=== PATIENT | female | born 2005 | race Caucasian/White ===

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

== ENCOUNTER 2025-04-02 13:47 | Outpatient (CLI) | payer OTHER, SELFPAY ==
--- NOTE | ~2025-04-02 | US_ITS ---
EXAMINATION: US pelvic complete INDICATION: Irregular menses TECHNIQUE: Multiple transabdominal sonographic images of the pelvis were obtained. COMPARISON: None. FINDINGS: Uterus: The uterus appears normal in size, shape, and position. The endometrium appears normal, with a thickness of 10 mm. Right Ovary: The right ovary appears normal. Vascular flow is present. Left Ovary: The left ovary appears normal.. Vascular flow is present. There is no free fluid in the pelvis. IMPRESSION: Normal pelvic ultrasound. Reviewed, dictated and finalized at location A. IMPRESSION: Normal pelvic ultrasound.
== END 2025-04-02 13:48 | disposition home or self-care (01) ==
LOC: MICIMG 13:49
PROVIDERS: PCP Family Medicine; Visit Provider Nurse Practitioner
DX: N92.6 Irregular menstruation, unspecified (principal)
CPT/HCPCS: 76856

== ENCOUNTER 2025-04-30 11:51 | Emergency (ER) | payer OTHER, SELFPAY ==
[2025-04-30 12:00] VITALS: BP 107/60; PULSE 59; RESP 18; TEMP 36.2; O2SAT 100
--- NOTE | 2025-04-30 12:11 | ED.FEMALEGU ---
HPI - Female Genitourinary General Chief complaint: Urogenital-Female Stated complaint: UTI Source: patient Mode of arrival: ambulatory Limitations: no limitations History of Present Illness HPI Narrative: This is a 20 y/o female that presents to the urgent care with reports of dsyuria, frequency and dark colored urine that began yesterday. Patient has had UTI's before, she has started AZO urinary OTC. she denies any back pain, fever, or other symptoms. MD elicited complaint: dysuria and UTI Onset (ago): day(s) (2) Severity: mild Severity scale (1-10): 2 Quality of pain: burning Consistency: intermittent Vaginal discharge: none Vaginal bleeding: none Urinary symptoms: Dysuria, Frequency and Foul Smelling Urine Exacerbating factors: none Relieving factors: none Associated symptoms: denies other symptoms Treatment prior to arrival: OTC urinary analgesics Sexual activity: Yes Patient : No Date of Last Menstrual Period: 04/16/25 Related Data Home Medications ?Medication ?Instructions ?Recorded ?Confirmed ?Last Taken ?Type drospirenone 3 mg-ethinyl 1 tablet PO DAILY 09/09/23 04/30/25 Unknown History estradiol 0.03 mg tablet (Alize (28)) Allergies Allergy/AdvReac Type Severity Reaction Status Date / Time No Known Allergies Allergy Verified 04/30/25 11:54 Review of Systems Review of Systems: All systems reviewed & are unremarkable except as noted in HPI and below PMFSH Past Medical History Medical History Anxiety Arthritis Osteochondroma Surgical, left shoulder Psoriasis Surgical History Surgical History [place] teeth removed Family History Family History Grandparent Cerebrovascular accident Social History Social History Smoking status: Former smoker (quit Jan 2023) Second hand tobacco smoke exposure: No Alcohol intake: never Substance use: never Substance use type: does not use Lack of Transportation: No Lack of Food: Never True Current Housing: I Have Housing Concerned About Future Housing: No Difficulty Paying Gas/Electric Bills: No Difficulty Paying for Meds: No Currently Unemployed: No Education: High School Diploma/GED Occupation/Education: occupation 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 Gender identity (if verbalized by the patient): Female Sexual Orientation (if Verbalized by the Patient): Straight or Heterosexual Spiritual care concerns: No Agree to blood products: No Exam Const: General: healthy appearing Nutritional Appearance: well nourished Orientation/consciousness: patient oriented x3 Limitations: no limitations HENMT: Head: normal to inspection Ears: external ears normal Face/Nose/Sinus: Normal external nose present Face and sinus: normal facial exam Mouth: Yes Normal oral and palatal mucosa present Teeth and gingiva: dentition normal Eyes: Conjunctivae: conjunctivae normal Pupils: Equal, round and reactive pupils present Neck: Neck: normal visual inspection Chest: Chest palpation & inspection: normal inspection of the chest Resp: Effort & Inspection: normal respiratory effort Auscultation: clear to auscultation bilaterally Cardio: Rate: regular rate Rhythm: regular rhythm GI: GI Palp: Yes Soft to palpation Auscultation: normal bowel sounds : General: Yes Bladder palpation abnormal tender and Yes no CVA tenderness Back/Spine/Pelvis: Back: no CVA tenderness Skin: General skin exam: normal color Rashes: no rashes Wounds: no wounds Neuro: General: patient oriented x3 Cranial nerves: Yes Nystagmus not present Speech: normal speech Gait exam (Neuro): Normal gait present Extrem: General: normal to inspection Psych: Appearance: grossly normal Mental Status: mental status grossly normal Affect: normal affect Attitude: cooperative Course Course Emergency Course: This is a 20 y/o female that presents to the urgent care with reports of dsyuria, frequency and dark colored urine that began yesterday. Patient has had UTI's before, she has started AZO urinary OTC. she denies any back pain, fever, or other symptoms. educated patient on urinalysis results. educated on use of AZO. will treat urinalysis with antibiotics. increase your fluids, avoid alcohol or carbonated beverages. Continue with azo urinary as prior. Take antibiotics until completed. Avoid baths, hot tubs, or swimming at this time. Ensure to avoid after sexual intercourse. Follow with primary care provider in the next 2-3 days for further evaluation and exam. Return to the emergency department or urgent care with any worrisome sign or symptom. Answered questions to her satisfaction she is agreeable to plan. patient denies any further needs or concerns to be addressed prior to discharge Level of Care: Express Care Visit Vital Signs Vital signs: Vital Signs Temperature 97.1 F L 04/30/25 12:00 Pulse Rate 59 L 04/30/25 12:00 Respiratory Rate 18 04/30/25 12:00 Blood Pressure 107/60 04/30/25 12:00 Pulse Oximetry 100 04/30/25 12:00 Oxygen Delivery Room Air 04/30/25 12:00 Temperature 97.1 F L 04/30/25 12:00 Pulse Rate 59 L 04/30/25 12:00 Respiratory Rate 18 04/30/25 12:00 Blood Pressure 107/60 04/30/25 12:00 Pulse Oximetry 100 04/30/25 12:00 Oxygen Delivery Room Air 04/30/25 12:00 MDM - Female Genitourinary MDM Narrative Medical decision making narrative: increase your fluids, avoid alcohol or carbonated beverages. Continue with azo urinary as prior. Take antibiotics until completed. Avoid baths, hot tubs, or swimming at this time. Ensure to avoid after sexual intercourse. Follow with primary care provider in the next 2-3 days for further evaluation and exam. Return to the emergency department or urgent care with any worrisome sign or symptom. Differential Diagnosis Differential diagnosis: Likely urinary tract infection and cystitis Medical Records Attestation: I reviewed the patient's medical records. Lab Data Attestation: I reviewed the patient's lab results. Labs: Lab Results 04/30/25 Range/Units 12:11 POC Urine HCG, Qual Negative (Negative) Discharge Plan Discharge Clinical Impression: Urinary tract infection Qualifiers: Urinary tract infection type: site unspecified Hematuria presence: without hematuria Qualified Code(s): N39.0 - Urinary tract infection, site not specified Patient Disposition: Home Condition: Stable Instructions: Antibiotic Form, Urinary Tract Infection in Women (DC) Additional Instructions: increase your fluids, avoid alcohol or carbonated beverages. Continue with azo urinary as prior. Take antibiotics until completed. Avoid baths, hot tubs, or swimming at this time. Ensure to avoid after sexual intercourse. Follow with primary care provider in the next 2-3 days for further evaluation and exam. Return to the emergency department or urgent care with any worrisome sign or symptom. Patient Language: Tamazight Prescriptions: New nitrofurantoin monohyd/m-cryst [Macrobid] 100 mg capsule 100 mg PO Q12H 7 Days Qty: 14 0RF Rx Instructions: must administer with a meal/food No Action drospirenone-ethinyl estradiol [Alize (28)] 3-0.03 mg Tablet 1 tablet PO DAILY lidocaine HCl [Lidocaine Viscous] 2 % solution 5 ml MUCOUS MEM QID PRN (Reason: pain) Qty: 100 0RF Rx Instructions: Gargle and spit montelukast 10 mg tablet 10 mg PO DAILY Qty: 30 1RF Follow-up/Referrals: Lucian,MD Gi [Primary Care Provider, Family Practice] Time of Disposition: 12:25
[2025-04-30 12:13] LABS: BEDSIDEPREGUCG Negative (Negative)
[2025-04-30 12:17] LABS: EDUAAPPEAR Cloudy; EDUABILI Negative (Negative); EDUABLOOD 3+ (Negative); EDUACOLOR1 Dark; EDUAGLUCOSE Negative (Negative); EDUAKETONE Negative (Negative); EDUALEUKO 1+ (Negative); EDUANITRATE Positive (Negative); EDUAPH 7.5; EDUAPROTEIN 3+ (Negative); EDUASPGRAVITY 1.025; EDUAUROBILI 1.0
== END 2025-04-30 12:26 | disposition home or self-care (01) ==
PROVIDERS: Emergency Provider Nurse Practitioner Family; PCP Family Medicine
DX: N39.0 Urinary tract infection, site not specified (principal); Z87.891 Personal history of nicotine dependence; M19.90 Unspecified osteoarthritis, unspecified site; L40.9 Psoriasis, unspecified
CPT/HCPCS: 81003; 81025; 87086; 99213; G0463